=== PATIENT | male | born 1980 | race Caucasian/White ===

== ENCOUNTER 2017-07-03 10:21 | Emergency (ER) | payer SELFPAY ==
[~2017-07-03] VITALS: Ht 188 cm; Wt 94.3 kg
[2017-07-03 10:37] VITALS: BP 144/85
[2017-07-03] MEDS ORDERED: KETOROLAC 30 MG/1 ML IM ONE (11:00)
[2017-07-03] MEDS ORDERED: DIAZEPAM 5 MG TABLET PO ONE (11:00)
[2017-07-03] MEDS ORDERED: KETOROLAC 30 MG/1 ML ONE (11:26)
[2017-07-03] MEDS ORDERED: DIAZEPAM 5 MG TABLET ONE (11:26)
== END 2017-07-03 12:31 | disposition home or self-care (01) ==
LOC: ED 12:25
DX: S29.012A Strain of muscle and tendon of back wall of thorax, initial encounter (principal); X50.0XXA Overexertion from strenuous movement or load, initial encounter; Y93.89 Activity, other specified; Y92.89 Other specified places as the place of occurrence of the external cause; Y99.8 Other external cause status
CPT/HCPCS: 96372; 99283; J1885

== ENCOUNTER 2017-08-30 08:07 | Emergency (ER) | payer SELFPAY ==
[~2017-08-30] VITALS: Ht 188 cm; Wt 97.5 kg
[2017-08-30 08:08] VITALS: BP 143/75
[2017-08-30] MEDS ORDERED: METHOCARBAMOL 750 MG TABLET ONE (09:13)
[2017-08-30] MEDS ORDERED: HYDROcodone/APAP 5/325 TABLET ONE (09:13)
[2017-08-30] MEDS ORDERED: IBUPROFEN 200 MG TABLET ONE (09:14)
[2017-08-30] MEDS ORDERED: IBUPROFEN 200 MG TABLET PO ONE (09:30)
[2017-08-30] MEDS ORDERED: METHOCARBAMOL 750 MG TABLET PO ONE (09:30)
[2017-08-30] MEDS ORDERED: HYDROcodone/APAP 5/325 TABLET PO ONE (09:30)
== END 2017-08-30 10:02 | disposition home or self-care (01) ==
LOC: ED 09:57
DX: M46.1 Sacroiliitis, not elsewhere classified (principal)
CPT/HCPCS: 72110; 99284